=== PATIENT | female | born 1940 | race Caucasian/White ===

== ENCOUNTER → 2020-03-22 | Outpatient (CLI) | payer MEDICARE, BC ==
[~2020-03-22] MED LIST: ADVAIR 500-501 EACH INH; BENADRYL25 MG PO; CALCIUM 600 +1 EAC1 PO; FENTANYL PA50 MCG/HR TRANSDERM; FLONASE 0.05%50 MCG NASAL; IBUPROFEN 200200 M1 PO; IRON325 PO; MAGNESIUM PO; MULTI-VITAMIN1 EAC5 PO; NORCO 5-325 TA1 EACH PO; OXYCODONE IR PO; PRILOSEC20 MG PO
== END ==
LOC: M.ULTRA 10:00
DX: M79.89 Other specified soft tissue disorders (principal)

== ENCOUNTER 2020-08-06 16:42 | Inpatient (IN) | payer MEDICARE, BC ==
[~2020-08-06] VITALS: Ht 162.6 cm; Wt 83.9 kg
[~2020-08-06 16:42] MED LIST changes: +ACID REDUCER20 M1 PO; -PRILOSEC20 MG PO
[2020-08-06 16:52] VITALS: BP 128/80
[2020-08-06] MEDS ORDERED: HYDROCODON-ACE1 EAC5 (16:56)
[2020-08-06 17:31] LABS: ABSOLUTE BASOPHILS 0.1 thou/uL (0.0-0.2); ABSOLUTE EOSINOPHILS 0.2 thou/uL (0.0-0.7); ABSOLUTE LYMPHOCYTES 1.2 thou/uL (0.8-5.3); ABSOLUTE MONOCYTES 1.2 thou/uL (0.0-1.2); ABSOLUTE NEUTROPHILS 6.5 thou/uL (1.6-8.1); BASOPHILS 0.7 %; EOSINOPHILS 2.2 %; HEMATOCRIT 37.9 % (37.0-47.0); HEMOGLOBIN 12.5 gm/dL (12.0-15.0); LYMPHOCYTES 13.4 %; MCH 29.7 pg (26.0-34.0); MCHC 33.1 g/dL (28.0-37.0); MCV 89.8 fL (80.0-100.0); MONOCYTES 13.4 %; MPV 6.9 fl. (7.2-11.1); NUCLEATED RBCS 0 /100WBC; PLATELET COUNT* 330 thou/uL (150-400); POLYS 70.3 %; RBC 4.23 mil/uL (4.20-5.00); RDW-CV 14.8 % (10.5-14.5); WBC 9.2 thou/uL (4.0-11.0)
[2020-08-06 17:40] LABS: CALCIUM 8.9 mg/dL (8.5-10.1); CREATININE 1.2 mg/dL (0.6-1.3); POTASSIUM 4.7 mmol/L (3.5-5.1)
[2020-08-06 17:44] LABS: TOTAL BILIRUBIN 0.2 mg/dL (<0.1-1.0); TOTAL PROTEIN 6.5 g/dL (6.4-8.2)
[2020-08-06] MEDS ORDERED: ZESTRIL20 MG PO (17:44)
[2020-08-06] MEDS ORDERED: LOPRESSOR50 MG PO (17:49)
[2020-08-06 19:20] VITALS: BP 144/76
[2020-08-06 19:59] VITALS: BP 173/79
--- NOTE | 2020-08-06 22:05 | NUR ---
PATIENT'S HOME MEDS TAKEN TO PHARMACY
--- NOTE | 2020-08-06 22:25 | NUR ---
DR. AZAR PAGED REGARDING RESTARTING PATIENT'S HOME MEDICATIONS. WAITING FOR NEW ORDERS.
--- NOTE | 2020-08-07 05:12 | NUR ---
PATIENT RESTLESS THROUGHOUT NIGHT. CELLULITIS TO LEFT FOOT. IBUPROFEN X1 GIVEN FOR PAIN. C/O OF TROUBLE BREATHING, PLACED ON 2L O2 NASAL CANNULA. LUNG SOUNDS CLEAR. VANC GIVEN X1. IV TO RIGHT AC, PATENT, DRESSING C/D/I. BENADRYL GIVEN X1 AT PATIENT'S REQUEST FOR AGGITATION. PATIENT RESTING IN BED. WILL CONTINUE TO MONITOR.
[2020-08-07 07:10] VITALS: BP 120/61
[2020-08-07 07:22] LABS: ABSOLUTE BASOPHILS 0.1 thou/uL (0.0-0.2); ABSOLUTE EOSINOPHILS 0.2 thou/uL (0.0-0.7); ABSOLUTE LYMPHOCYTES 1.4 thou/uL (0.8-5.3); ABSOLUTE NEUTROPHILS 5.4 thou/uL (1.6-8.1); BASOPHILS 0.9 %; EOSINOPHILS 2.1 %; LYMPHOCYTES 17.1 %; MCHC 32.4 g/dL (28.0-37.0); MCV 89.4 fL (80.0-100.0); MONOCYTES 12.7 %; MPV 6.8 fl. (7.2-11.1); NUCLEATED RBCS 0 /100WBC; PLATELET COUNT* 302 thou/uL (150-400); POLYS 67.2 %; RBC 4.14 mil/uL (4.20-5.00); RDW-CV 14.9 % (10.5-14.5)
[2020-08-07 07:25] LABS: CALCIUM 8.9 mg/dL (8.5-10.1); POTASSIUM 4.2 mmol/L (3.5-5.1)
[2020-08-07] MEDS ORDERED: LASIX 40 MG TAB40 MG PO (08:40)
[2020-08-07] MEDS ORDERED: KLOR-CON M2020 MEQ PO (08:41)
[2020-08-07] MEDS ORDERED: ADVAIR 500-501 EACH INH (08:54)
--- NOTE | 2020-08-07 12:56 | NUR ---
Pt is A&O. Resides at home with her . Normally independent. Pt uses a walker for mobility, has a cane that she uses PRN. No home o2. Hx of HH, "a long time ago." Hx of SNF at [facility] approx 5-6 years ago. Goal is home at dc, Pt open to HH if needed. Anticipate dc in 1-2 days.
[2020-08-07 16:04] VITALS: BP 142/65
--- NOTE | 2020-08-07 17:17 | NUR ---
PT REMAINED ALERT AND ORIENTED. PT RESTING IN BED. ASSISTED TO BATHROOM AND BEDSIDE COMMODE THROUGHOUT THE DAY. FALL RISK PRECAUTIONS IN PLACE. HOURLY ROUNDING COMPLETED.
[2020-08-07 20:16] VITALS: BP 173/90
[2020-08-08 02:06] LABS: GLYCOHEMOGLOBIN (HGB A1C) 5.6 % (4.8-5.6)
--- NOTE | 2020-08-08 05:00 | NUR ---
PT NPO SINCE MIDNIGHT. PAIN WELL MANAGED WITH SCHEDULED HYDROCODONE AND IBRUPORFEN. RECEIVED ALL MEDS AND FLUIDS SCHEDULED. ALERT AND ORIENTED, 2L-O2, UP STANDBY ASSIST TO COMMODE. RECEIVED LASIX SO FREQUENT URINATION. CONSENT SIGNED. PRE-OP CHECKLIST COMPLETED, IN CHART. I&D PROCEDURE SCHEDULED FOR 729 THIS AM.
[2020-08-08 05:50] LABS: ABSOLUTE EOSINOPHILS 0.2 thou/uL (0.0-0.7); ABSOLUTE LYMPHOCYTES 1.5 thou/uL (0.8-5.3); ABSOLUTE MONOCYTES 0.9 thou/uL (0.0-1.2); ABSOLUTE NEUTROPHILS 4.5 thou/uL (1.6-8.1); BASOPHILS 0.7 %; EOSINOPHILS 2.9 %; HEMATOCRIT 36.8 % (37.0-47.0); HEMOGLOBIN 11.9 gm/dL (12.0-15.0); LYMPHOCYTES 21.4 %; MCH 29.1 pg (26.0-34.0); MCHC 32.2 g/dL (28.0-37.0); MCV 90.3 fL (80.0-100.0); MONOCYTES 12.8 %; MPV 6.9 fl. (7.2-11.1); NUCLEATED RBCS 0 /100WBC; PLATELET COUNT* 307 thou/uL (150-400); POLYS 62.2 %; RBC 4.08 mil/uL (4.20-5.00); RDW-CV 14.4 % (10.5-14.5); WBC 7.2 thou/uL (4.0-11.0)
[2020-08-08 06:24] LABS: CALCIUM 8.8 mg/dL (8.5-10.1); POTASSIUM 4.3 mmol/L (3.5-5.1)
[2020-08-08 09:39] VITALS: BP 140/61
--- NOTE | 2020-08-08 12:46 | NUR ---
Surgery today, CT showed foot abscess. Anticipate dc in 1-2 days. CM following for possible IVabx needs.
[2020-08-08 14:45] VITALS: BP 126/61
--- NOTE | 2020-08-08 15:31 | EKG ---
[place] [address] ELECTROCARDIOGRAM REPORT Name: ESTEFANY OSUNA Room: [address] ADM IN M.R.#: [id number] Admission: 08/06/20 Attend Phys: Eber Tompkins Discharge: Date of : 44 Date of Service: 08/07/202203 Report #: [id number] THIS REPORT FOR: //name// [facility] Test Date: 2020-08-07 Test Time: 22:04:04 Pat Name: ESTEFANY OSUNA Department: Room: [address] Gender: F Stenographer Secretary: [facility] : 1940 Requested By: Eulalio Pathak Order Number: [id number] Kalyn MD: Boyd Mcneal Measurements Intervals [place] Rate: 71 P: 25 NV: 191 QRS: 9 QRSD: 82 T: 18 QT: 390 QTc: 424 Interpretive Statements Sinus rhythm Low voltage, precordial leads Abnormal R-wave progression, early transition Compared to ECG 08/27/2008 19:46:34 Sinus tachycardia no longer present Myocardial infarct finding no longer present Electronically Signed On 08-08-2020 15:31:22 GEOLOGICAL SURVEY FIELD ASSISTANT by Boyd Mcneal [email or web address] <ELECTRONICALLY SIGNED> By: Boyd Mcneal MD, FAC 08/08/20 1531 03 03 Boyd Mcneal MD, FAC /EPI
--- NOTE | 2020-08-08 17:15 | NUR ---
PT REMAINED ALERT AND ORIENTED. PT RESTING IN BED. PT UP TO COMMODE WITH SURGIVAL SHOE IN PLACE. DRESSING INTACT. FALL RISK PRECAUTIONS IN PLACE. HOURLY ROUNDING COMPLETED.
[2020-08-08 21:42] VITALS: BP 145/66
[2020-08-09 04:36] LABS: ABSOLUTE BASOPHILS 0.1 thou/uL (0.0-0.2); ABSOLUTE LYMPHOCYTES 1.5 thou/uL (0.8-5.3); ABSOLUTE MONOCYTES 1.1 thou/uL (0.0-1.2); BASOPHILS 0.6 %; EOSINOPHILS 0.4 %; HEMATOCRIT 34.6 % (37.0-47.0); HEMOGLOBIN 11.3 gm/dL (12.0-15.0); LYMPHOCYTES 15.2 %; MCH 29.6 pg (26.0-34.0); MCHC 32.7 g/dL (28.0-37.0); MCV 90.5 fL (80.0-100.0); MONOCYTES 11.2 %; MPV 6.6 fl. (7.2-11.1); NUCLEATED RBCS 0 /100WBC; PLATELET COUNT* 280 thou/uL (150-400); POLYS 72.6 %; RBC 3.82 mil/uL (4.20-5.00); RDW-CV 14.5 % (10.5-14.5); WBC 9.7 thou/uL (4.0-11.0)
--- NOTE | 2020-08-09 05:40 | NUR ---
PT ALERT AND ORIENTED, 2L-O2 DESAT AT NIGHT TO MID 80'S BUT SEEMS OK WHEN AWAKE WITHOUT O2. SHE TOOK HYDROCODONE AT 2200 AND 0600 AND RECEIVED ALL MEDS SCHEDULED. SHE IS STANDBY TO COMMODE AND BATHROOM, SHE CAN USE WALKER WELL AND AMBULATE WITH. PAIN SEEMS WELL MANAGED WITH CURRENT MEDS. DRESSING ON LEFT FOOT APPEARS TO BE C/D/I, NO DRAINAGE.
[2020-08-09 06:00] LABS: ALBUMIN 2.6 g/dL (3.4-5.0); CALCIUM 8.5 mg/dL (8.5-10.1); CREATININE 0.9 mg/dL (0.6-1.3); POTASSIUM 4.8 mmol/L (3.5-5.1); TOTAL BILIRUBIN 0.4 mg/dL (<0.1-1.0); TOTAL PROTEIN 5.9 g/dL (6.4-8.2)
[2020-08-09 08:00] VITALS: BP 129/66
--- NOTE | 2020-08-09 11:17 | NUR ---
HAD EVACUATION OF HEMATOMA/LEFT FOOT ,YESTERDAY, IN OR BY . ID CONSULTED. SHE CAN BE WBAT WITH SURGICAL SHOE ON. CULTURES PENDING.PER , MAY NEED IVAB AT DISCHARGE, BUT HOPEFULLY HOME ON ORAL. CONTINUE TO WATCH CX/SENSITIVITIES.
[2020-08-09] MEDS ORDERED: MINOCYCLINE HC100 M2 PO (12:01)
--- NOTE | 2020-08-09 12:18 | OP ---
[address] [address] OPERATIVE REPORT Name: ESTEFANY OSUNA Room: [address] IN M.R.#: [id number] Admission: 08/06/20 Attend Phys: Alison Cui Discharge: Date of : 44 Report #: [id number] THIS REPORT FOR: cc: Naveed Medeiros Steve T. DO ~ Gonzalez, Melanie A. DPM DATE OF SERVICE: 08/08/2020 SURGEON: Alana Riley DPM STORAGE BATTERY TESTER: None. PREOPERATIVE DIAGNOSES: Abscess, left foot and cellulitis, left lower extremity. POSTOPERATIVE DIAGNOSES: Hematoma, left foot with cellulitis to left lower extremity. PROCEDURE PERFORMED: Evacuation of hematoma, left foot. PATHOLOGY: Hematoma was cultured at this time. ANESTHESIA: General with local. HEMOSTASIS: Compression only. ESTIMATED BLOOD LOSS: 5 mL. MATERIALS USED: A 4-0 Vicryl and 4-0 nylon. INJECTABLES: 20 mL of 1:1 mixture of 0.5% Marcaine plain and 1% lidocaine plain. COMPLICATIONS: None and the hematoma about 60 mL was evacuated from side. PROCEDURE IN DETAIL: The patient was brought into the operating room and placed on the operating table in the supine position. After general anesthesia was obtained, a pneumatic ankle tourniquet was then placed about the patient's left ankle with adequate padding noted. A local timeout was then performed at this time and 10 mL of 1:1 mixture of 0.5% Marcaine plain and 1% lidocaine plain was then placed about the patient's left ankle. The patient's left foot was then scrubbed, prepped and draped in the usual aseptic manner. Next, attention was then directed to the dorsal aspect of the patient's left foot where a large abscess was noted within the subcutaneous tissue, obtaining the majority of the dorsum of her foot, predominantly along metatarsals 2, 3 and 4. At this time, [place] [address] OPERATIVE REPORT Name: ESTEFANY OSUNA Room: [address] IN ..#: [id number] Admission: 08/06/20 Attend Phys: Alison Cui Discharge: Date of : 44 Report #: [id number] 2-cm incision was then placed about the dorsal aspect of the central portion of the abscess at this time down to the level of subcutaneous tissue. It was at this time that we were able to note an extensive amount of darkened hematoma that was significantly coagulated to the dorsum of the foot at this time. Incision was then extended at this time leaving an approximately 5 cm incision along the dorsum of the foot down to the level of subcutaneous tissue and further dissection utilizing blunt dissection, noted continued hematogenous and coagulated blood throughout the dorsum of the foot. This was all evacuated and deep cultures were taken at this time. There were no obvious areas of pustular drainage, no malodor and no necrotic tissue noted within the area. The hematoma did not extend past the extensors at this time. There was no extensive or any active bleeding that was cauterized via Bovie cauterization at this time. The surgical site was then copiously irrigated at this time with sterile normal saline utilizing a pulse lavage system using approximately 2 mL of sterile normal saline. Next, the skin and the surrounding surgical site was then cleansed and dried and the deep tissue was then reapproximated utilizing 4-0 Vicryl. It is important to note that during the evacuation and during retraction, the skin was noted to be extremely friable and there was two skin tears noted to the incision at this time, which were repaired utilizing 4-0 nylon with the remaining incision at this time. A small portion of the incision remained open for any continued bloody drainage in order to prevent further formation of the hematoma. Next, the incision was then dressed with Adaptic and then bolstered with a large amount of 4 x 4 gauze, ABD pad and Kerlix. The foot was then wrapped with an Pb bandage. Prior to dressing of the wound or of the incision, it is important to note that an additional 10 mL of 1:1 mixture of 0.5% Marcaine plain and 1% lidocaine plain was then injected about the surgical site. The patient tolerated the procedure and anesthesia well and was transported from the operating room to the recovery room with vital signs stable and neurovascular status intact to the left lower extremity. <ELECTRONICALLY SIGNED> By: Alana Riley DPM 08/09/20 1218 0839 [id number] Riley DPM /akanksha
--- NOTE | 2020-08-09 13:32 | NUR ---
PT.MAY DISCHARGE TODAY IF OK WITH ID AND PODIATRY. ORDERED HOME HEALTH. DISCUSSED WITH PT. SHE HAD NO PREFERENCE. VENDOR CHOICE FORM SIGNED. FAXED ORDERS AND CLINICAL INFORMATION TO [facility] AND NOTIFIED [facility]. IF PODIATRY WRITES FURTHER ORDERS THEY WILL NEED TO BE FAXED TO . [facility] [phone]
[2020-08-09 13:36] VITALS: BP 129/66
[2020-08-09 16:00] VITALS: BP 106/54
--- NOTE | 2020-08-09 18:23 | NUR ---
PT. A+OX4. SBA WITH WALKER. PT EASILY WINDED WHEN AMBULATING. PT TOLERATING 2L 02. PT SEEN BY PODIATRY AND ID, DISCHARGE PLANNED FOR TOMORROW. PT VOICES NO CONCERNS AT THIS TIME. PT RESTING COMFORTABLY IN BED. CALL LIGHT WITHIN REACH.
[2020-08-09 18:31] VITALS: BP 129/66
--- NOTE | 2020-08-09 19:20 | NUR ---
I HAVE REVIEWED AND AGREE WITH CH[facility]ING [facility].
[2020-08-09 19:59] VITALS: BP 166/69
[2020-08-10] VITALS: BP 154/63
[2020-08-10 04:05] VITALS: BP 159/76
[2020-08-10 08:00] VITALS: BP 152/69
[2020-08-10] MEDS ORDERED: KEFLEX500 M1 PO (13:11)
[2020-08-10 14:18] VITALS: BP 129/66
[2020-08-10 14:30] VITALS: BP 129/66
--- NOTE | 2020-08-10 14:30 | NUR ---
PT.QUALIFIED FOR HOME O2 AT 3 L/NC WITH ACTIVITY PER RESTING AND EXERCISE SATS. FAXED PRESCRIPTION,SATURATIONS, FACE SHEET AND PROGRESS NOTE TO [facility]. SHE DELIVERED A PORTABLE TANK TO HOSPITAL FOR PT.TO GO HOME WITH. PRESLEY JOHNSON TO TELL HER TO CALL NUMBER ON [employer] WHEN SHE GETS HOME FOR HOME DELIVERY. PT.WANTING A SHOULDER CARRY SMALL TANK. NOTIFIED .
--- NOTE | 2020-08-10 15:15 | NUR ---
PATIENT DISCHARGED TO HOME WITH HOME HEALTH AND OXYGEN. OXYGEN TANK DELIVERED TO ROOM. DISCHARGE PAPERS REVIEWED AND SIGNED. PRESCRIPTION TRANSMITTED TO PHARMACY AND INFORMATION SHEETS GIVEN. IV REMOVED. PATIENT DENIES ANY FURTHER NEEDS. PATIENT TAKEN BY WHEELCHAIR TO EXIT. LEFT WITH .
--- NOTE | 2020-08-10 16:30 | NUR ---
[facility]. LUIS CARLOS/KARYN SAID PRESCRIPTION NEEDED TO SAY PORTABLE CONCENTRATOR SET AT 3 LITERS. FAXED TO [phone]. ALEJANDRO WILL CONTACT HER TO SEE IF STILL INTERESTED.
== END 2020-08-10 15:15 | disposition home health service (06) | DRG 580 ==
LOC: M.ERS 16:42 → M.3W 17:38 → M.TBA-ER 17:38 → M.3W 19:35
PROVIDERS: Internal Medicine; Nurse Practitioner Family; ADMIT Internal Medicine; ATTEND Internal Medicine
PROC: 0J9R0ZZ Drainage of Left Foot Subcutaneous Tissue and Fascia, Open Approach (ICD-10-PCS; principal; 2020-08-08)
DX: L03.116 Cellulitis of left lower limb (principal); L02.612 Cutaneous abscess of left foot; E44.1 Mild protein-calorie malnutrition; C91.10 Chronic lymphocytic leukemia of B-cell type not having achieved remission; Z20.822 Contact with and (suspected) exposure to COVID-19; J44.9 Chronic obstructive pulmonary disease, unspecified; K21.9 Gastro-esophageal reflux disease without esophagitis; J45.909 Unspecified asthma, uncomplicated; I10 Essential (primary) hypertension; K59.00 Constipation, unspecified; S90.32XA Contusion of left foot, initial encounter; E66.9 Obesity, unspecified; D64.9 Anemia, unspecified; M19.90 Unspecified osteoarthritis, unspecified site; Z87.01 Personal history of pneumonia (recurrent); Z68.31 Body mass index [BMI] 31.0-31.9, adult; Z90.49 Acquired absence of other specified parts of digestive tract; X58.XXXA Exposure to other specified factors, initial encounter; Y93.89 Activity, other specified; Y92.89 Other specified places as the place of occurrence of the external cause; Z28.21 Immunization not carried out because of patient refusal